=== PATIENT | male | born 1950 | race Caucasian/White ===

== ENCOUNTER → 2017-03-10 | Outpatient (CLI) | payer OTHER | LOC: CIMAGING 12:37 | PROVIDERS: ATTEND Internal Medicine Interventional Cardiology | DX: M79.89 Other specified soft tissue disorders (principal) | CPT/HCPCS: 93971-PO ==

== ENCOUNTER 2017-08-30 08:23 | Inpatient (IN) | payer OTHER ==
[~2017-08-30 08:23] MED LIST: ROPIVACAINE 0.2% 80 MG, EPINEPHrine 0.2 MG, KETOROLAC TROMETHAMINE 30 MG in SYRINGE 0 ML IU ONE; TRANEXAMIC ACID 3,000 MG in NS 50 ML IRR ONE
[2017-08-30] MEDS ORDERED: TRANEXAMIC ACID 3,000 MG/50 ML BAG IRR ONE (09:05)
--- NOTE | 2017-08-30 09:25 | PDHPUP ---
History & Physical Update H&P update statement: This history and physical update is based on an assessment of the patient which was completed after admission or registration (within 24 hours), but prior to the surgery/procedure. H&P update: H&P reviewed & patient examined, no change in patient's condition since H&P completed
[2017-08-30] MEDS ORDERED: ceFAZolin 2 GM/SWFI 2 GM/20 ML SYR IVP ONE (09:44)
[2017-08-30] MEDS ORDERED: ACETAMINOPHEN 325 MG TAB PO ONE (09:44)
[2017-08-30] MEDS ORDERED: DEXAMETHASONE 4 MG/ML VIAL IVP ONE (09:44)
[2017-08-30] MEDS ORDERED: FAMOTIDINE 20 MG TAB PO ONE (09:44)
[2017-08-30] MEDS ORDERED: LIDOCAINE 1% 2 ML INJ ID PRN (09:47)
[2017-08-30] MEDS ORDERED: LR 1,000 ML IV ONE (09:47)
[2017-08-30] MEDS ORDERED: MIDAZOLAM 2 MG/2 ML VIAL ONE (10:50)
[2017-08-30] MEDS ORDERED: MIDAZOLAM 2 MG/2 ML VIAL IVP ONE (10:54)
--- NOTE | 2017-08-30 10:54 | PDANEPAE ---
ANE History of Present Illness Hip OA ANE Past Medical History - Cardiovascular History Hx Hypertension: Yes Hx Arrhythmias: No Hx Chest Pain: No Hx Coronary Artery / Peripheral Vascular Disease: Yes Hx CHF / Valvular Disease: No Hx Palpitations: No Cardiovascular History Comment: HOCM. cad with stent x1. hypercholesteremia - Pulmonary History Hx COPD: No Hx Asthma/Reactive Airway Disease: No Hx Recent Upper Respiratory Infection: No Hx Oxygen in Use at Home: No Hx Sleep Apnea: No Sleep Apnea Screening Result - Last Documented: Positive Pulmonary History Comment: dot positive- central uses cpap- instructed pt to bring to hospital - Neurologic History Hx Cerebrovascular Accident: No Hx Seizures: No Hx Dementia: No - Endocrine History Hx Diabetes: No - Renal History Hx Renal Disorders: Yes Renal History Comment: bph. frequency - Liver History Hx Hepatic Disorders: No - Neurological & Psychiatric Hx Hx Neurological and Psychiatric Disorders: No - Cancer History Hx Cancer: No - Congenital Disorder History Hx Congenital Disorders: No - GI History Hx Gastrointestinal Disorders: Yes Gastrointestinal History Comment: reflux - Other Health History Other Health History: none - Chronic Pain History Chronic Pain: Yes (left hip) - Surgical History Prior Surgeries: colonoscopies. angioplasty. broken leg repair at 13 yo. hernia repair ANE Review of Systems Review of Systems: - Exercise capacity METS (RN): 4 METS ANE Patient History - Allergies Allergies/Adverse Reactions: No Known Allergies Allergy (Verified 08/30/17 09:57) - Home Medications Home medications: home medication list seen and reviewed Home Medications: Rosuvastatin Calcium [Crestor] 5 mg PO HS 08/26/13 [Last Taken 08/29/17 20:30] Metoprolol Succinate Xr [Toprol Xl 100 mg (*)] 200 mg PO HS 06/29/16 [Last Taken 08/29/17 20:30] Aspirin [Aspirin 81mg (*)] 162 mg PO HS 07/26/17 [Last Taken 08/20/17] Herbals/Supplements -Info Only 1 ea PO DAILY 07/26/17 [Last Taken 08/16/17] Hydrocodone/APAP 5/325 [[place] 5/325 (*)] 1 - 2 tab PO Q6H PRN 07/26/17 [Last Taken 08/09/17] Losartan Potassium [Cozaar 50 mg (*)] 50 mg PO HS 07/26/17 [Last Taken 08/29/17 20:30] Omeprazole [Prilosec 20 mg] 20 mg PO HS 07/26/17 [Last Taken 08/29/17 20:30] traMADol [Ultram 50 mg (*)] 50 mg PO Q6 PRN 07/26/17 [Last Taken 08/29/17 09:00] - NPO status NPO Since - Liquids (Date): 08/29/17 NPO Since - Liquids (Time): 22:30 NPO Since - Solids (Date): 08/29/17 NPO Since - Solids (Time): 20:30 - Anes Hx Anes Hx: no prior problems - Smoking Hx Smoking Status: Never smoked - Family Anes Hx Family Hx Anesthesia Complications: none ANE Labs/Vital Signs - Vital Signs Blood Pressure: 124/83 Heart Rate: 53 Respiratory Rate: 16 O2 Sat (%): 93 Height: 182.88 cm Weight: 92.533 kg ANE Physical Exam - Airway Neck exam: FROM Mallampati Score: Class 2 Mouth exam: normal dental/mouth exam - Pulmonary Pulmonary: no respiratory distress - Cardiovascular Cardiovascular: regular rate and rhythym - ASA Status ASA Status: III ANE Anesthesia Plan Anesthesia Plan: spinal
[2017-08-30] MEDS ORDERED: PROPOFOL/EMULSION 500 MG/50 ML BOTTLE IV ONE ×2 (11:01→12:00)
[2017-08-30] MEDS ORDERED: LIDOCAINE 2% 5 ML SDV ONE (11:01)
[2017-08-30] MEDS ORDERED: HYDROmorphONE/DILAUDID 1 MG/ML INJ IVP PRN (11:25)
[2017-08-30] MEDS ORDERED: ONDANSETRON 4 MG/2 ML VIAL IVP PRN ×2 (11:25→12:41)
[2017-08-30] MEDS ORDERED: NALOXONE HCL 0.4 MG/ML INJ IVP PRN (11:25)
[2017-08-30] MEDS ORDERED: fentaNYL 100 MCG/2 ML INJ IVP PRN (11:25)
[2017-08-30] MEDS ORDERED: PHENYLEPHRINE HCL 100 MCG/ML SYR ONE (12:01)
[2017-08-30] MEDS ORDERED: traMADol 50 MG TAB PO PRN (12:37)
[2017-08-30] MEDS ORDERED: TEMAZEPAM 15 MG CAP PO PRN (12:41)
[2017-08-30] MEDS ORDERED: ONDANSETRON DISINTEGRATING 4 MG TAB PO PRN (12:41)
[2017-08-30] MEDS ORDERED: METOCLOPRAMIDE 10 MG/2 ML VIAL IVP PRN (12:41)
[2017-08-30] MEDS ORDERED: DIPHENOXYLATE/ATROPINE LOMOTIL 1 TAB PO PRN (12:41)
[2017-08-30] MEDS ORDERED: POLYETHYLENE GLYCOL 3350 17 GM PKT PO PRN (12:41)
[2017-08-30] MEDS ORDERED: BISACODYL 10 MG SUPP PR PRN (12:41)
[2017-08-30] MEDS ORDERED: CYCLOBENZAPRINE 10 MG TAB PO PRN (12:41)
[2017-08-30] MEDS ORDERED: PROMETHAZINE HCL 25 MG/ML INJ IVP PRN (12:41)
[2017-08-30] MEDS ORDERED: PROMETHAZINE HCL 25 MG SUPPR PR PRN (12:41)
[2017-08-30] MEDS ORDERED: MAGNESIUM HYDROXIDE 30 ML UDCUP PO PRN (12:41)
[2017-08-30] MEDS ORDERED: diphenhydrAMINE 25 MG CAP PO PRN (12:41)
[2017-08-30] MEDS ORDERED: LACTULOSE 20 GM/30 ML UDCUP PO PRN (12:41)
[2017-08-30] MEDS ORDERED: oxyCODONE IR 5 MG TAB PO PRN (12:41)
--- NOTE | 2017-08-30 12:42 | POSTANESTH ---
Post Anesthetic Evaluation Cardiovascular Status: Similar to Pre-Op Cond Respiratory Status: Similar to Pre-op Cond. Level of Consciousness/Mental Status: Alert and Oriented, Mildly Sleepy, Arousable Pain Control: Adequate, Prn Tx Ordered Nausea/Vomiting Control: Adequate, Prn Tx Ordered Complications Possibly Related to Anesthesia: None Noted
--- NOTE | 2017-08-30 12:44 | POSTOPPROG ---
Post Op Note Date of Operation: 08/30/17 Surgeon: Sadie Dorado Scenario Writer: sarita dorado Anesthesiologist: dr. williamson Anesthesia: Spinal Pre-op Diagnosis: left hip OA Post-op Diagnosis: same Indication: left hip pain due to OA that failed conservative measures Procedure: L LAINA ant approach Findings: severe HIP OA Inf/Abcess present in the surg proc area at time of surgery?: No EBL: 100-500
[2017-08-30] MEDS ORDERED: LR 1,000 ML IV SCH (13:00)
[2017-08-30] MEDS: ceFAZolin 2 GM/DEXTROSE 100 ML IV SCH ×2 (14:56→22:11)
[2017-08-30] MEDS: ACETAMINOPHEN 325 MG TAB PO SCH ×2 (17:26→23:43)
[2017-08-30] MEDS ORDERED: LOSARTAN POTASSIUM 50 MG TAB PO SCH (21:00)
[2017-08-30] MEDS ORDERED: NON-FORMULARY NEW DRUG (Omeprazole [Prilosec 20 Mg] 20 MG) PO SCH (21:00)
[2017-08-30] MEDS ORDERED: ROSUVASTATIN CALCIUM 5 MG PO SCH (21:00)
[2017-08-30] MEDS ORDERED: ROSUVASTATIN CALCIUM 10 MG TAB PO SCH (21:00)
[2017-08-30] MEDS ORDERED: PANTOPRAZOLE SODIUM 40 MG TAB PO SCH (21:00)
[2017-08-30] MEDS ORDERED: METOPROLOL SUCCINATE XR 100 MG TAB PO SCH (21:00)
[2017-08-30] MEDS: SENNOSIDES/DOCUSATE SODIUM TAB PO SCH (21:28)
[2017-08-30] MEDS: ASPIRIN 81 MG CHEWABLE TAB PO SCH (21:29)
[2017-08-30] MEDS: FAMOTIDINE 20 MG TAB PO SCH (22:11)
--- NOTE | 2017-08-31 02:59 | GOP ---
[f rep st] OPERATIVE REPORT DATE OF OPERATION: 08/30/2017 SURGEON: So Durbin MD RETAIL PERFORMANCE SPECIALIST: Anna Marie Durbin PA-C ANESTHESIA: Spinal. PREOPERATIVE DIAGNOSIS: Left hip osteoarthritis. POSTOPERATIVE DIAGNOSIS: Left hip osteoarthritis. PROCEDURE PERFORMED: Left total hip arthroplasty with x-ray. FINDINGS: ESTIMATED BLOOD LOSS: 200 cc. INDICATIONS: The patient has progressively worsening arthritis of the hip which has failed medical management. The patient understands the treatment options including continued non-operative care and has selected surgical intervention. The patient has decided to undergo total hip arthroplasty via the direct anterior approach, understanding the risks of the procedure including , but not limited to, neurovascular injury, infection, persistent pain, component wear and loosening, deep venous thrombosis, pulmonary embolism, limb length inequality, hip instability (including dislocation), and intra-operative fractures. DESCRIPTION OF PROCEDURE: After proper identification of the patient including verification and marking the surgical site, the patient was brought to the operating room and placed in the supine position. All bony prominences were well padded. Anesthesia was induced without complication and intravenous prophylactic antibiotics were administered prior to skin incision. The operative leg was placed in the Trumpf Arch table extension and the well leg in a Yellofin leg ramachandran. The patient was prepped and draped in the usual sterile fashion. The C-arm was draped for intra-operative fluoroscopy to check acetabular position, femoral component position including leg length and femoral offset. Attention was then drawn to surgical exposure of the hip. An incision was made with a #10 Bard Navdeep blade starting 3 cm lateral and 3 cm distal to the anterior superior iliac spine measuring 8-10 cm and coursing distally toward the greater trochanter. The skin and subcutaneous tissues were divided sharply down to the fascia sara. The fascia sara was incised in line with the skin incision exposing the underlying tensor fascia sara muscle. The muscle was bluntly elevated from the fascia and the first extracapsular Cobra retractor was placed laterally at the junction of the superior femoral neck and greater trochanter. The lateral femoral circumflex vessels were identified, cauterized , and divided with the Aquamantys bipolar cautery. The deep investing fascia of the TFL was divided to allow proper mobilization of the muscle preventing damage during the retraction. The reflected head of the rectus femoris muscle was elevated off the anterior hip capsule and a medial Cobra retractor was placed just proximal to the lesser trochanter. The anterior capsulotomy was made sharply from the superolateral acetabulum to the saddle junction of the superior femoral neck and greater trochanter, then coursing inferomedial towards the lesser trochanter. The retractors were then placed in the intracapsular position for femoral neck osteotomy. Corresponding to pre-operative templating, the osteotomy was made with the oscillating saw carefully protecting the greater trochanter and soft tissues. The femoral head was removed from the acetabulum with a corkscrew and confirmed to be severely arthritic with exposed bone, deformity and osteophytes. Similar findings were confirmed in the acetabulum. The Arch table extension was then placed in 40 degrees external rotation. Attention was then drawn to the acetabular preparation. After placement of the anterior and posterior Cobra retractors outside the labrum and intracapsular, the circumferential labrum was removed sharply. The foveal contents were then removed and hemostasis obtained with cautery. The first reamer selected was sized using the removed femoral head. Reaming began with medialization and then commenced in 2 mm increments at 45 degrees of abduction and 15 degrees of anteversion using fluoroscopic navigation. Reaming ceased 1 mm less than the definitive acetabular component and corresponded to the pre-operative templating. The final acetabular component was inserted using fluoroscopy to achieve proper orientation yielding excellent purchase and stability in the acetabulum. The final acetabular liner was then placed and its seating confirmed. Attention was then turned to the femur. The Arch table extension was placed in extension and adduction, delivering the osteotomized femoral neck into the wound. A 2-pronged femoral elevator was placed at the calcar and another at the tip of the greater trochanter. The posterolateral capsule was released with cautery allowing mobilization of the femur lateral and anterior for preparation. The external rotators were visualized and preserved. A curette and rongeur were used to open the starting point for broaching. Serial broaching started with the #0 broach and ended with the broach that exhibited excellent fit in the proximal femur. A change in pitch during mallet strikes was accompanied by the inability to advance the broach any further. The trial reduction was performed and fluoroscopic navigation was utilized to check limb length. Adjustments were made to equalize limb length accordingly. After the final trials were accepted they were removed and the wound was copiously lavaged. The femoral component was seated to the same depth as the final broach and the femoral head was impacted onto the clean trunnion. The hip was then reduced for the final time and once more fluoroscopy was used to check that limb length equality was achieved. The wound was irrigated and closed in layers, the fascia sara with 2-0 Quill, the subcutaneous tissue with 2-0 Quill, and the skin with Dermabond. Sterile dressings were applied. Final sharps and sponge counts were accurate. The patient was then transferred to a hospital bed and brought to the recovery room in stable condition. IMPLANTS: Accolade II, size 5 at 127. Acetabular component a 58 mm Tritanium. The liner is a Trident X3, 36 mm. The head is a Biolox Delta, 36 mm +0. /[id number]/MODL MTDD
[2017-08-31] MEDS: ACETAMINOPHEN 325 MG TAB PO SCH (05:28)
[2017-08-31] MEDS: SENNOSIDES/DOCUSATE SODIUM TAB PO SCH (07:58)
[2017-08-31] MEDS: FAMOTIDINE 20 MG TAB PO SCH (07:59)
[2017-08-31] MEDS: ASPIRIN 81 MG CHEWABLE TAB PO SCH (08:02)
[2017-08-31 08:09] VITALS: BP 140/72; PULSE 62; RESP 16; TEMP 97.8; O2SAT 93
--- NOTE | 2017-08-31 09:01 | GDS ---
[f rep st] DISCHARGE SUMMARY ADMISSION DIAGNOSIS: Left hip osteoarthritis. DISCHARGE DIAGNOSIS: Left hip osteoarthritis. PROCEDURE: Left total hip arthroplasty. VTE PROPHYLAXIS: Aspirin 81 mg twice daily for 4 weeks recommended. BRIEF DESCRIPTION OF HOSPITAL STAY: Patient was admitted for an elective joint arthroplasty. The pa teresa tolerated the procedure well and has passed physical therapy. The patient was given appropriat e antibiotic prophylaxis and venous thromboembolism prophylaxis. The patient's pain was well control led on oral pain medication, patient was holding down food, and had urinated. Decision was made to d ischarge the patient. The patient was given post-operative prescriptions pre-operatively. PLAN: To follow up as scheduled, Dr. Durbin's office September 21 at 9:30 a.m. /[id number]/MODL
--- NOTE | 2017-08-31 10:13 | SOAPPROG ---
SOAP Progress Note Assessment/Plan: Assessment: Patient is doing well POD 1 s/p R LAINA Pain management: pain is well controlled on oral pain meds. VTE ppx: recommend aspirin 81mg BID for 4 weeks, cont BLAKE and SCDs Anemia: level is expected initially postop. Asymptomatic. Continue to monitor D/c planning: d/c to home today pending release from PT postop urinary retention: resolved today Plan: 08/31/17 10:12 Subjective: Jeffrey is doing well, denies SOB, chest pain and N/V. Objective: Vital Signs Temp Pulse Resp BP Pulse Ox 36.6 C 62 16 140/72 H 93 08/31/17 08:00 08/31/17 08:00 08/31/17 08:00 08/31/17 08:00 08/31/17 08:00 Laboratory Results 08/31/17 04:54 08/30/17 08/31/17 09/01/17 05:59 05:59 05:59 Intake Total 2724 Output Total 1460 450 Balance 1264 -450 RLE: incision dressing is clean and dry, NVI, +pf/df ICD10 Worksheet Patient Problems: Problems Problem Status Onset Primary localized osteoarthritis of left hip Acute Coronary stent restenosis Acute Hypertension Acute IHSS (idiopathic hypertrophic subaortic stenosis) Acute Primary localized osteoarthritis of right hip Acute URI, acute Acute
--- NOTE | 2017-08-31 14:01 | ASDISCHSUM ---
Discharge Information Plan Status:Home with No Needs Medically Cleared to Leave: Discharge Date:08/31/2017 12:21 PM CM D/C Disposition:Home, Routine, Self-Care ADT D/C Disposition:Home, Routine, Self-Care Projected Discharge Date:08/31/2017 12:21 PM Transportation at D/C: Discharge Delay Reason: Follow-Up Date:08/31/2017 12:21 PM Discharge Slot: Final Diagnosis: Placement Information Patient Contact Information Contact Name:JULIAN Relationship: Address:[address] City:[facility] Phone: [facility]/Zip Code:[place] [address] Email: Financial Information Financial Class:HMO and PPO Plans Primary Plan Desc:[facility] Primary Plan Number:[id number] Secondary Plan Desc:[facility] [employer] Secondary Plan Number:[id number] Assessment Information Intervention Information
== END 2017-08-31 12:21 | disposition home or self-care (01) | DRG 470 ==
LOC: F3N 09:24
PROVIDERS: ADMIT Orthopaedic Surgery; ATTEND Orthopaedic Surgery
PROC: 0SRB04Z Replacement of Left Hip Joint with Ceramic on Polyethylene Synthetic Substitute, Open Approach (ICD-10-PCS; principal; 2017-08-30 11:15)
DX: M16.12 Unilateral primary osteoarthritis, left hip (principal); R33.9 Retention of urine, unspecified; I25.10 Atherosclerotic heart disease of native coronary artery without angina pectoris; Z95.5 Presence of coronary angioplasty implant and graft; K21.9 Gastro-esophageal reflux disease without esophagitis; G47.30 Sleep apnea, unspecified
CPT/HCPCS: 97161-GP; 97165-GO; G8978-GP-CI; G8979-GP-CI; G8980-GP-CI; G8987-GO-CI; G8988-GO-CI; G8989-GO-CI; J0171; J0690; J1100; J1885; J2250; J2370; J2704; J2795

== ENCOUNTER 2018-10-21 22:15 | Emergency (ER) | payer OTHER ==
--- NOTE | 2018-10-22 00:15 | EDPHY ---
H & P Stated Complaint: HIGH BP, LEG SWELLING Time Seen by Provider: 10/22/18 00:15 HPI/ROS: HPI CHIEF COMPLAINT: "concerned about BP" HISTORY OF PRESENT ILLNESS: Patient is a very pleasant 68-year-old male, presents emergency room stating he is concerned about how high his blood pressure is. He reports he really does not any symptoms he denies any chest pain or chest pressure denies any shortness of breath he does report that he had some ankle swelling after returned back from [place]. Bilateral ankle swelling. Took his blood pressure tonight got a reading of 190/120. This concerned him. He has been taking his blood pressure medication as prescribed. Takes losartan and metoprolol. Past Medical History: Coronary artery disease, hypertension, hypertrophic cardiomyopathy. Past Surgical History: Denies recent surgery Social History: Denies drugs alcohol tobacco. Family History: Noncontributory ROS REVIEW OF SYSTEMS: 10 Systems were reviewed and negative with the exception of the elements mentioned in the history of present illness. Exam Constitutional appears well nontoxic triage nursing summary reviewed, vital signs reviewed, awake/alert. Hypertensive at triage. Eyes normal conjunctivae and sclera, EOMI, PERRLA. HENT normal inspection, atraumatic, moist mucus membranes, no epistaxis, neck supple/ no meningismus, no raccoon eyes. Respiratory clear to auscultation bilaterally, normal breath sounds, no respiratory distress, no wheezing. Cardiovascular rate normal, regular rhythm, no murmur, no edema, distal pulses normal. Gastrointestinal soft, non-tender, no rebound, no guarding, normal bowel sounds, no distension, no pulsatile mass. Genitourinary no CVA tenderness. Musculoskeletal no midline vertebral tenderness, full range of motion, no calf swelling, no tenderness of extremities, no meningismus, good pulses, neurovascularly intact. Skin pink, warm, & dry, no rash, skin atraumatic. Neurologic awake, alert and oriented x 3, AAOx3, moves all 4 extremities equally, motor intact, sensory intact, CN II-XII intact, normal cerebellar, normal vision, normal speech. Psychiatric normal mood/affect. Heme/Lymph/Immune no lymphadenopathy. Differential Diagnosis: Includes but is not limited to in a particular order hypertension, hypertension urgency, hypertensive emergency, anxiety, increased stress, electrolyte disturbance, kidney dysfunction Medical Decision Making: Plan for this patient IV establishment, EKG basic labs and re-evaluate. Re-evaluation: EKG interpretation by me on record in [facility] system. Impression time of EKG 003, normal sinus rhythm rate of 53 without any signs of acute ischemia. Troponin 0.01. Kidney function normal. 1:25 a.m. patient resting comfortably no acute distress. Blood pressure has slowly improved. He denies any chest pain shortness of breath. Blood pressure 163/88 at 2:00 a.m.. 0230: Patient re-evaluated is resting comfortably. He has no complaints. He denies any chest pain or shortness of breath. Denies headache at this time. His blood pressure did come down the 160 systolic. He is eager for discharge home. His workup here for hypertension is been rather unremarkable. He has a normal nonischemic EKG. Troponin negative. Electrolytes are appropriate. Kidney function appropriate I had a long discussion with him. I do recommend he keeps a close eye on his blood pressure for the next week keeping a log. If he has very high blood pressure or develops chest pain, shortness of breath, headache he needs return to the emergency room. I do encourage him to follow up closely with his primary care doctor he is comfortable this plan. ED x-ray chest one view negative for acute cardiopulmonary disease. Return precautions discussed with the patient understands return emergency room if develops worsening pain questions or concerns. Source: Patient - Personal History Current Tetanus Diphtheria and Acellular Pertussis (TDAP): Yes - Medical/Surgical History Hx Asthma: No Hx Chronic Respiratory Disease: No Hx Diabetes: No Hx Cardiac Disease: Yes Hx Renal Disease: No Hx Cirrhosis: No Hx Alcoholism: No Hx HIV/AIDS: No Hx Splenectomy or Spleen Trauma: No Other PMH: PMHx: HTN, Ideopathic hypertrophic subaortic stenosis. PSHx: denies - Social History Smoking Status: Never smoked Constitutional: Initial Vital Signs Temperature (C) 37.0 C 10/21/18 22:36 Heart Rate 58 L 10/21/18 22:36 Respiratory Rate 16 10/21/18 22:36 Blood Pressure 182/97 H 10/21/18 22:36 O2 Sat (%) 92 10/21/18 22:36 O2 Delivery Mode Room Air Allergies/Adverse Reactions: No Known Allergies Allergy (Verified 08/30/17 09:57) Home Medications: Medication Instructions Recorded Metoprolol Succinate Xr [Toprol Xl 200 mg PO HS 06/29/16 100 mg (*)] Losartan Potassium [Cozaar 50 mg 50 mg PO HS 07/26/17 (*)] Aspirin 10/21/18 Medical Decision Making - Data Points Laboratory Results: Laboratory Results 10/22/18 00:35 10/22/18 00:10 10/22/18 10/22/18 10/22/18 00:37 00:35 00:10 WBC 7.21 10^3/uL 10^3/uL (3.80-9.50) RBC 4.47 10^6/uL 10^6/uL (4.40-6.38) Hgb 13.3 g/dL L g/dL (13.7-17.5) Hct 39.0 % L % (40.0-51.0) MCV 87.2 fL fL (81.5-99.8) MCH 29.8 pg pg (27.9-34.1) MCHC 34.1 g/dL g/dL (32.4-36.7) RDW 12.8 % % (11.5-15.2) Plt Count 132 10^3/uL L 10^3/uL (150-400) MPV 9.6 fL fL (8.7-11.7) Neut % (Auto) 63.6 % % (39.3-74.2) Lymph % (Auto) 25.0 % % (15.0-45.0) Starke % (Auto) 8.2 % % (4.5-13.0) Eos % (Auto) 2.5 % % (0.6-7.6) Baso % (Auto) 0.4 % % (0.3-1.7) Nucleat RBC Rel Count 0.0 % % (0.0-0.2) Absolute Neuts (auto) 4.59 10^3/uL 10^3/uL (1.70-6.50) Absolute Lymphs (auto) 1.80 10^3/uL 10^3/uL (1.00-3.00) Absolute Monos (auto) 0.59 10^3/uL 10^3/uL (0.30-0.80) Absolute Eos (auto) 0.18 10^3/uL 10^3/uL (0.03-0.40) Absolute Basos (auto) 0.03 10^3/uL 10^3/uL (0.02-0.10) Absolute Nucleated RBC 0.00 10^3/uL 10^3/uL (0-0.01) Immature Gran % 0.3 % % (0.0-1.1) Immature Gran # 0.02 10^3/uL 10^3/uL (0.00-0.10) Sodium 140 mEq/L mEq/L (135-145) Potassium 4.0 mEq/L mEq/L (3.5-5.2) Chloride 108 mEq/L mEq/L (97-110) Carbon Dioxide 26 mEq/l mEq/l (22-31) Anion Gap 6 mEq/L mEq/L (6-14) BUN 21 mg/dL mg/dL (7-23) Creatinine 1.1 mg/dL mg/dL (0.7-1.3) Estimated GFR > 60 Glucose 107 mg/dL H mg/dL (70-100) Calcium 9.1 mg/dL mg/dL (8.5-10.4) POC Troponin I 0.01 ng/mL ng/mL (0.00-0.08) Medications Given: Discontinued Medications Sodium Chloride (Ns) 500 mls @ 1,000 mls/hr IV EDNOW ONE PRN Reason: Protocol Stop: 10/22/18 00:56 Last Admin: 10/22/18 00:35 Dose: 500 mls Point of Care Test Results: Chemistry 10/22/18 00:37 POC Troponin I 0.01 ng/mL ng/mL (0.00-0.08) Departure - Departure Disposition: Home, Routine, Self-Care Clinical Impression: Hypertension Condition: Good Instructions: Hypertension (ED) Additional Instructions: 1. Monitor your blood pressure closely. I recommend you keep a log take it twice a day and right down recorded. Take it after you take your blood pressure medication. 2. Follow up with your primary care doctor 3. Return to the emergency room if there is worsening symptoms questions or concerns. Referrals: MICHELE HAYES [Primary Care Provider] - As per Instructions
[2018-10-22] MEDS ORDERED: NS 500 ML IV ONE (00:27)
[2018-10-22 01:01] LABS: PLATELET COUNT 132 10^3/uL (150-400)
[2018-10-22 02:47] VITALS: BP 163/86
--- NOTE | 2018-10-25 07:53 | CPEKG ---
Test Reason : OPEN Blood Pressure : / mmHG Vent. Rate : 053 BPM Atrial Rate : 054 BPM P-R Int : 201 ms QRS Dur : 102 ms QT Int : 465 ms P-R-T Axes : 010 032 024 degrees QTc Int : 437 ms Sinus rhythm Confirmed by Minor Gudino ([id number]) on 10/25/2018 7:52:39 AM Referred By: Minor Gudino Confirmed By:Minor Gudino
== END 2018-10-22 02:46 | disposition home or self-care (01) ==
DX: I10 Essential (primary) hypertension (principal); I25.10 Atherosclerotic heart disease of native coronary artery without angina pectoris; I42.2 Other hypertrophic cardiomyopathy
CPT/HCPCS: 84484-ER

== ENCOUNTER 2019-02-04 13:51 | Emergency (ER) | payer OTHER | END 2019-02-04 15:54 | disposition home or self-care (01) ==